=== PATIENT | male | born 1940 | race Caucasian/White ===

== ENCOUNTER 2016-06-24 06:17 | Inpatient (IN) | payer OTHER, BC ==
[2016-06-04 14:27] VITALS: BMI 31.0
--- NOTE | 2016-06-04 14:58 | PAT Medication Instructions ---
Service Date Jun 04, 2016. Current Home Medication List Aspirin (Aspirin 81), 81 MG PO QAM Atorvastatin (Lipitor), 10 MG PO QAM Multivitamin (Multivitamin), 1 TAB PO QAM Medication Instructions For Your Scheduled Surgery - Hold the following medications the morning of surgery: Multivitamin (Multivitamin), 1 TAB PO QAM - Take the following medications the morning of surgery with a sip of water OTHERWISE NOTHING TO EAT OR DRINK AFTER MIDNIGHT: Aspirin (Aspirin 81), 81 MG PO QAM Atorvastatin (Lipitor), 10 MG PO QAM If you have any questions please call us at [phone] or [phone] or [phone]
--- NOTE | 2016-06-04 15:44 | DIAGNOSTIC IMAGING REPORT ---
CHEST 2 VIEWS ROUTINE CLINICAL HISTORY: PAT preoperative evaluation COMPARISON STUDY: No previous studies for comparison. FINDINGS: The bones soft tissues and hemidiaphragms are normal. The cardiomediastinal silhouette is normal. The lungs are clear. The pulmonary vasculature is normal. IMPRESSION: Negative chest. Electronically signed by: Dennis De M.D. 06/04/2016 3:41 PM Dictated Date/Time: 06/04/2016 3:41 PM
[2016-06-04 16:23] LABS: BASO % 0.6 %; BASO ABS # 0.04 K/uL (0-0.2); COMPLETE YES; EOS % 3.6 %; HEMATOCRIT 41.2 % (42-52); IG% 0.6 %; LYMPH % 21.6 %; LYMPH ABS # 1.52 K/uL (1.2-3.4); MEAN CELL VOLUME 91.8 fL (80-100); MEAN CORPUSCULAR HEMOGLOBIN 30.7 pg (25-34); MEAN CORPUSCULAR HGB CONC 33.5 g/dl (32-36); MEAN PLATELET VOLUME 10.1 fL (7.4-10.4); MONO % 7.3 %; NEUT % 66.3 %; PLATELET COUNT 202 K/uL (130-400); RED BLOOD COUNT 4.49 M/uL (4.7-6.1); WHITE BLOOD COUNT 7.03 K/uL (4.8-10.8)
[2016-06-04 16:30] LABS: URINE APPEARANCE CLEAR (CLEAR); URINE BILIRUBIN NEG (NEG); URINE COLOR YELLOW; URINE NITRITE NEG (NEG); URINE PH 5.5 (4.5-7.5); URINE SPECIFIC GRAVITY 1.024 (1.000-1.030); UROBILINOGEN NEG (NEG); ZZUR CULT IF INDIC CLEAN CATCH NO
[2016-06-04 16:34] LABS: PARTIAL THROMBOPLASTIN RATIO 1.1; PROTHROMBIN TIME (PATIENT) 10.7 SECONDS (9.0-12.0)
[2016-06-04 16:35] LABS: BUN/CREATININE RATIO 18.5 (10-20); CALCIUM 8.8 mg/dl (8.5-10.1); CREATININE 1.3 mg/dl (0.60-1.40); POTASSIUM 3.7 mmol/L (3.5-5.1)
[2016-06-04 16:36] LABS: MANUAL MICROSCOPIC REQUIRED? NO; REVIEW REQ? NO
--- NOTE | 2016-06-21 13:41 | HISTORY & PHYSICAL EXAMINATION ---
DATE OF ADMISSION: 06/24/2016 CHIEF COMPLAINT: Left knee pain. HISTORY OF PRESENT ILLNESS: Mr. Little is a 75-year-old male with a multiple year history of left knee pain. The patient rates his pain a 10+/10. He has pain with his daily activities. He has limited standing and walking tolerance. Pain is worse with weightbearing. The patient has had home exercise program, NSAIDS without relief. He has failed conservative treatment. He is scheduled for left knee replacement. PAST MEDICAL HISTORY: Osteoarthritis. He denies heart disease, diabetes or DVT. PAST SURGICAL HISTORY: Cataract extraction, cholecystectomy and left wrist. SOCIAL HISTORY: The patient drinks 2 drinks per week. He denies tobacco use. He lives in a single story home. He lives alone, but neighbors live close by. He is retired. FAMILY HISTORY: Negative for DVT. MEDICATIONS: Lipitor 10 mg, multivitamin, aspirin 81 mg and Aleve p.r.n. ALLERGIES: None. REVIEW OF SYSTEMS: See HPI. Ten other systems reviewed, all negative. PHYSICAL EXAMINATION: VITAL SIGNS: Height 5 foot 10. Weight 200 pounds. BMI is 31. GENERAL: This is a well-developed, well-nourished male who is alert and oriented x3. Mood and affect are appropriate. HEAD, EYES, EARS, NOSE, AND THROAT: Normocephalic, atraumatic. Mucous membranes are moist and intact. NECK: Supple without lymphadenopathy. HEART: Regular rate and rhythm without murmurs, rubs or gallops. LUNGS: Clear to auscultation without wheezes or rhonchi. ABDOMEN: Soft and nontender. Bowel sounds are equal and active. EXTREMITIES: No ecchymosis, redness or warmth. He has varus deformity. Range of motion is from 3 to 115 degrees. He has +1 to 2 medial laxity. He is neurovascularly intact with +5/5 strength. X-RAY EXAMINATION: AP and lateral views show joint space narrowing and osteophyte formation. IMPRESSION: Degenerative joint disease left knee. PLAN: The patient will be admitted for a left total knee arthroplasty. We will plan on aspirin for DVT prophylaxis.
[~2016-06-24] VITALS: Ht 177.8 cm; Wt 98.2 kg
[2016-06-24] VITALS (10 sets, daily range): BP systolic 110–164; BP diastolic 64–87; PULSE 66–76; TEMP 36.4–36.7; O2SAT 93–97; Ht 177.8 cm; Wt 98.2 kg
[~2016-06-24 06:17] MED LIST: ACETAMINOPHEN 500 MG TAB PO SCH; ASPI-435 PO; ATOR10TA82 PO; CEFAZOLIN 2000 MG/60 ML D5W 60 ML IV SCH; CeleBREX 200 MG CAP PO SCH; DEXAMETHASONE 4 MG TAB PO SCH; FAMOTIDINE 20 MG TAB PO SCH; GABAPENTIN 300 MG CAP PO SCH; LACTATED RINGER'S 1000ML 1,000 ML IV SCH; LACTATED RINGER'S 1000ML 500 ML IV ONE; LACTATED RINGER'S 1000ML IV SCH; METOCLOPRAMIDE HCL 10 MG TAB PO SCH; MULT-506 PO; OXYCODONE HCL 10 MG TABCR (OXYCONTIN) PO SCH; POLYMYXIN B SULFATE 100,000 UNITS in NSS 100ML IR SCH; ROPIVACAINE 5MG/ML 30 ML 150 MG, BUPIVACAINE/EPINEPHR 0.5% MPF 30 ML, KETOROLAC TROMETH... INFIL SCH; VANCOMYCIN INJ 400 MG in NSS 100ML IR SCH
[2016-06-24] MEDS ORDERED: BUPIVACAINE 0.5 % 5 MG/1 ML PF 10ML VIAL ONE (06:40)
[2016-06-24] MEDS ORDERED: ORTHO JOINT ANESTHETIC ONE (06:49)
[2016-06-24] MEDS ORDERED: POVIDONE-IODINE OP SOLN 30 ML BTL ONE (06:50)
[2016-06-24] MEDS ORDERED: BACITRACIN 50000 UNIT VIAL ONE (06:50)
[2016-06-24] MEDS ORDERED: BUPIVACAINE/EPINEPHRINE 0.25% 1:200,000 30 ML VIAL ONE (06:50)
--- NOTE | 2016-06-24 06:51 | History & Physical Bridge Note ---
H&P Re-Evaluation Bridge Note: I have examined the patient, reviewed the History & Physical and in the interval since the performance of the History & Physical I have noted the following changes of clinical significance: No changes noted
[2016-06-24] MEDS ORDERED: FENTANYL CITRATE INJ 50 MCG/1 ML 2 ML VIAL ONE (06:56)
[2016-06-24] MEDS ORDERED: MIDAZOLAM HCL 1 MG/ML 2ML VIAL ONE (06:56)
[2016-06-24] MEDS ORDERED: FENTANYL CITRATE INJ 50 MCG/1 ML 2 ML VIAL IV PRN (07:00)
[2016-06-24] MEDS ORDERED: ATROPINE SULFATE 0.1 MG/ML 5ML SYR IV PRN (07:00)
[2016-06-24] MEDS ORDERED: ONDANSETRON INJ 2 MG/ML 2 ML VIAL IV PRN ×2 (07:00→09:45)
[2016-06-24] MEDS ORDERED: EpHEDrine SULFATE INJ 50 MG/ML AMP IV PRN (07:00)
[2016-06-24] MEDS: TRANEXAMIC ACID INJ 1,000 MG in SODIUM CHLORIDE 0.9% 100ML 100 ML IV SCH (07:58)
[2016-06-24] MEDS ORDERED: PROPOFOL IV EMULSION 10 MG/ML 20 ML VIAL IV ONE (09:00)
[2016-06-24] MEDS ORDERED: PHENYLEPHRINE 100MCG/ML 5ML SYR ONE ×2 (09:00→10:22)
[2016-06-24] MEDS ORDERED: LIDOCAINE HCL 2% 2 ML VIAL (20MG/ML) ONE (09:00)
--- NOTE | 2016-06-24 09:41 | [facility] Post Operative Brief Note ---
Immediate Operative Summary Operative Date June 24, 2016. Pre-Operative Diagnosis Degenerative joint disease left knee Post-Operative Diagnosis Degenerative joint disease left knee Procedure(s) Performed Left Total Knee Arthroplasty, Cemented Surgeon Dr. Joss Redd Paper Sales Representative Surgeon(s) Arik Venegas PA-C Estimated Blood Loss 75ml Findings DJD Specimens A: Left knee bone and tissue Complication(s) None Disposition Recovery Room / PACU
[2016-06-24] MEDS ORDERED: SOD PHOSPHATE/SOD BIPHOSPHATE ENEMA 132 ML BTL PR PRN (09:45)
[2016-06-24] MEDS ORDERED: OXYCODONE HCL IR 5 MG TAB (IMMEDIATE RELEASE) PO PRN (09:45)
[2016-06-24] MEDS ORDERED: ALUMINUM/MAGNESIUM/SIMETH (MAALOX MAX) 30 ML UDC PO PRN (09:45)
[2016-06-24] MEDS ORDERED: DiphenhydrAMINE HCL 50 MG/ML VIAL IV PRN (09:45)
[2016-06-24] MEDS ORDERED: TRAMADOL HCL 50 MG TAB PO PRN (09:45)
[2016-06-24] MEDS ORDERED: MAGNESIUM HYDROXIDE SUSP 30 ML UDC PO PRN (09:45)
[2016-06-24] MEDS ORDERED: ZOLPIDEM TARTRATE 5 MG TAB PO PRN (09:45)
[2016-06-24] MEDS ORDERED: BISACODYL 10 MG SUPP PR PRN (09:45)
[2016-06-24] MEDS ORDERED: MoRPHine SULFATE 2 MG/ML CARP IV PRN (09:45)
[2016-06-24] MEDS ORDERED: KETOROLAC TROMETHAMINE 15 MG/ML VIAL IV. PRN (09:45)
[2016-06-24] MEDS ORDERED: METOCLOPRAMIDE HCL INJ 5 MG/ML 2 ML VIAL IV PRN (09:45)
--- NOTE | 2016-06-24 10:54 | DIAGNOSTIC IMAGING REPORT ---
LEFT KNEE 1 OR 2 VIEWS ROUTINE CLINICAL HISTORY: AP/LATERAL IN PACU LEFT KNEE COMPARISON: None. DISCUSSION: Evidence for a total knee arthroplasty. Surgical drains are in position. There is no evidence for soft tissue swelling. IMPRESSION: Total left knee arthroplasty Electronically signed by: Dennis De M.D. 06/24/2016 10:53 AM Dictated Date/Time: 06/24/2016 10:53 AM
--- NOTE | 2016-06-24 11:49 | Anesthesiology Progress Note ---
Anesthesia Post Op Note Date & Time June 24, 2016 at 11:49 Vital Signs Pain Intensity: 0 Vital Signs Past 12 Hours Date Time Temp Pulse Resp B/P Pulse Ox O2 Delivery O2 Flow Rate FiO2 06/24/16 11:30 36.1 74 17 129/77 96 Nasal Cannula 3 06/24/16 11:25 78 22 115/70 97 Nasal Cannula 3 06/24/16 11:15 74 14 126/77 96 Nasal Cannula 3 06/24/16 11:05 76 20 119/70 96 Nasal Cannula 3 06/24/16 10:55 79 20 121/73 99 Nasal Cannula 3 06/24/16 10:45 77 16 122/74 99 Nasal Cannula 3 06/24/16 10:35 76 16 108/55 99 Nasal Cannula 3 06/24/16 10:25 74 16 116/71 99 Nasal Cannula 3 06/24/16 10:17 36.8 79 16 85/44 99 Nasal Cannula 3 06/24/16 06:49 36.7 72 20 164/87 97 Room Air Notes Mental Status: alert / awake / arousable, participated in evaluation Pt Amnestic to Procedure: Yes Nausea / Vomiting: adequately controlled Pain: adequately controlled Airway Patency, RR, SpO2: stable & adequate BP & HR: stable & adequate Hydration State: stable & adequate Neuraxial Anesthesia: was administered, sensory block is resolving Anesthetic Complications: no major complications apparent
[2016-06-24] MEDS: D5W AND 1/2NSS + 20MEQ KCL 1,000 ML IV SCH ×2 (12:49→22:26)
[2016-06-24] MEDS: ACETAMINOPHEN 500 MG TAB PO SCH ×2 (13:46→22:26)
[2016-06-24] MEDS: CEFAZOLIN IV 2,000 MG in DEXTROSE 5% 50ML 50 ML IV SCH ×2 (15:57→23:30)
[2016-06-24] MEDS ORDERED: TRANEXAMIC ACID INJ 1,000 MG in SODIUM CHLORIDE 0.9% 100ML 100 ML IV SCH (16:00)
--- NOTE | 2016-06-24 16:16 | OPERATIVE REPORT ---
DATE OF OPERATION: 06/24/2016 PREOPERATIVE DIAGNOSIS: Degenerative arthritis, left knee. POSTOPERATIVE DIAGNOSIS: Same. PROCEDURE: Left total knee with patient matched implant. SURGEON: Dr. Redd. IT SOFTWARE DEVELOPER: CHRISTY Irwin. ANESTHESIA: Spinal. BLOOD LOSS: 75 mL. REPLACEMENT FLUIDS: 1500 mL crystalloid. DRAINS: Hemovac x2. CULTURES: None. COMPLICATIONS: None. COMPONENTS USED: [employer] Journey Knee System, femur size 7, tibia size 7 x 12, and patella size 41. NOTE: CHRISTY Irwin was present and assisted throughout due to the complicated nature of this case. He helped with preparation and set up, first assisted throughout and personally closed the capsule, subcutaneous and skin layers and applied the postoperative dressing. DESCRIPTION OF PROCEDURE: Following satisfactory spinal, the patient was supine. A tourniquet was placed, but not inflated. The lower extremity was prepared with ChloraPrep and draped sterilely. Following a surgical time-out, a midline incision was made with a trivector approach. The knee showed grade 4 changes, severe in the medial and patellofemoral compartments. The cruciate ligaments were excised. The patella was freehand cut. The patient matched femoral block was applied. Femoral distal rotation and resection were set and completed. The 4-in-1 block was used to finish preparation of the femur. The patient matched tibial block was applied. Tibial resection was completed. Soft tissue balancing was completed and a trial reduction showed good tensioning and stability on the collateral ligaments, stable range of motion, and the patella tracked well. The trial components were removed. The capsule was prepared with the orthopedic cocktail. After irrigation, the components were cemented using Simplex G cement. Betadine soak was performed. When the cement had hardened, the Betadine was irrigated. Two drains were placed. The arthrotomy was closed with a running suture of 0 V-Loc, the subcutaneous tissues with 2-0 Vicryl and the skin with a running subcuticular stitch of 3-0 V-Loc. Dermabond and a dry dressing were applied. The patient was returned to his bed in good condition. I attest to the content of the Intraoperative Record and any orders documented therein. Any exceptio ns are noted below.
[2016-06-24] MEDS: OXYCODONE HCL 10 MG TABCR (OXYCONTIN) PO SCH (20:29)
[2016-06-24] MEDS: ASPIRIN 81 MG ECTAB PO SCH (20:29)
[2016-06-24] MEDS ORDERED: SENNA 8.6 MG TAB PO SCH (21:00)
[2016-06-25 02:51] VITALS: BP 120/67; PULSE 74; TEMP 36.4; O2SAT 95
[2016-06-25] MEDS: ACETAMINOPHEN 500 MG TAB PO SCH ×2 (05:54→14:02)
[2016-06-25 06:10] LABS: HEMATOCRIT 35.9 % (42-52); MEAN CORPUSCULAR HEMOGLOBIN 31.6 pg (25-34); MEAN PLATELET VOLUME 10.2 fL (7.4-10.4); PLATELET COUNT 178 K/uL (130-400); RED BLOOD COUNT 3.86 M/uL (4.7-6.1); WHITE BLOOD COUNT 16.92 K/uL (4.8-10.8)
[2016-06-25 06:49] LABS: BUN/CREATININE RATIO 18.1 (10-20); CALCIUM 8.2 mg/dl (8.5-10.1); CREATININE 1.2 mg/dl (0.60-1.40); POTASSIUM 4.2 mmol/L (3.5-5.1)
[2016-06-25] MEDS ORDERED: BUPIVACAINE/EPINEPHRINE 0.25% 1:200,000 30 ML VIAL ONE (07:06)
[2016-06-25] MEDS ORDERED: BACITRACIN 50000 UNIT VIAL ONE (07:07)
[2016-06-25] MEDS ORDERED: POVIDONE-IODINE OP SOLN 30 ML BTL ONE (07:07)
[2016-06-25 07:08] VITALS: BP 122/68; PULSE 75; TEMP 36.7; O2SAT 97
[2016-06-25] MEDS: OXYCODONE HCL 10 MG TABCR (OXYCONTIN) PO SCH (08:37)
[2016-06-25] MEDS: ASPIRIN 81 MG ECTAB PO SCH (08:37)
[2016-06-25] MEDS: D5W AND 1/2NSS + 20MEQ KCL 1,000 ML IV SCH (08:47)
[2016-06-25] MEDS ORDERED: PANTOprazole SOD 40 MG TAB PO SCH (09:00)
[2016-06-25] MEDS ORDERED: MULTIVITAMIN TAB PO SCH (09:00)
[2016-06-25] MEDS ORDERED: ATORVASTATIN 10 MG TAB PO SCH (09:00)
--- NOTE | 2016-06-25 09:36 | Anesthesiology Progress Note ---
Anesthesia Post Op Note Date & Time June 25, 2016 at 09:35 Vital Signs Pain Intensity: 4.0 Vital Signs Past 12 Hours Date Time Temp Pulse Resp B/P Pulse Ox O2 Delivery O2 Flow Rate FiO2 06/25/16 07:15 Room Air 06/25/16 07:08 36.7 75 16 122/68 97 Room Air 06/25/16 02:51 36.4 74 17 120/67 95 Room Air 06/24/16 23:30 Room Air 06/24/16 22:46 36.4 66 16 110/64 93 Room Air Notes Mental Status: alert / awake / arousable, participated in evaluation Pt Amnestic to Procedure: Yes Nausea / Vomiting: adequately controlled Pain: adequately controlled Airway Patency, RR, SpO2: stable & adequate BP & HR: stable & adequate Hydration State: stable & adequate Neuraxial Anesthesia: sensory block resolved Anesthetic Complications: no major complications apparent
--- NOTE | 2016-06-25 10:01 | Orthopedic Progress Note ---
Orthopedic Progress Note Date of Service June 25, 2016. Subjective Post OP Day: 1 Reports: feeling well, Denies: SOB, calf pain, chest pain, light headedness, nausea / vomiting Objective calves soft nontender, N/V intact, dressing C/D/I, A&O x3, toes mobile, hemovac drainage (445/380cc per shift) Date Time Temp Pulse Resp B/P Pulse Ox O2 Delivery O2 Flow Rate FiO2 06/25/16 07:15 Room Air 06/25/16 07:08 36.7 75 16 122/68 97 Room Air 06/25/16 02:51 36.4 74 17 120/67 95 Room Air 06/24/16 23:30 Room Air 06/24/16 22:46 36.4 66 16 110/64 93 Room Air 06/24/16 19:24 36.5 76 18 121/65 94 Room Air 06/24/16 16:30 94 Room Air 06/24/16 15:47 Room Air 06/24/16 14:46 36.7 73 17 121/69 97 Nasal Cannula 2.0 06/24/16 13:57 36.5 71 17 120/65 96 Nasal Cannula 2.0 06/24/16 13:46 36.5 73 16 119/72 97 Nasal Cannula 2.0 06/24/16 12:45 36.5 74 16 120/74 97 Nasal Cannula 2.0 06/24/16 12:11 70 18 127/77 97 Nasal Cannula 2.0 06/24/16 11:45 97 Nasal Cannula 2.0 06/24/16 11:45 36.7 75 16 129/80 97 Nasal Cannula 2.0 06/24/16 11:45 97 Nasal Cannula 2.0 06/24/16 11:30 36.1 74 17 129/77 96 Nasal Cannula 3 06/24/16 11:25 78 22 115/70 97 Nasal Cannula 3 06/24/16 11:15 74 14 126/77 96 Nasal Cannula 3 06/24/16 11:05 76 20 119/70 96 Nasal Cannula 3 06/24/16 10:55 79 20 121/73 99 Nasal Cannula 3 06/24/16 10:45 77 16 122/74 99 Nasal Cannula 3 06/24/16 10:35 76 16 108/55 99 Nasal Cannula 3 06/24/16 10:25 74 16 116/71 99 Nasal Cannula 3 06/24/16 10:17 36.8 79 16 85/44 99 Nasal Cannula 3 Laboratory Results 24 Hours: Test 06/25/16 05:25 Hematocrit 35.9 % Hemoglobin 12.2 g/dL Assessment & Plan Assessment: POD#1 sp left TKA Inhouse Planning Pain Management: Celebrex, Oxycontin, PO Tylenol, Oxy IR DVT Prophylaxis: TEDs, SCDs, ASA Discharge Planning Discharge Planning: home with home health ([facility] TODAY WITH ADVANTAGE. )
--- NOTE | 2016-06-25 10:02 | Discharge Instructions ---
Discharge Instructions Date of Service June 25, 2016. Admission Reason for Admission: Left Knee Degenerative Arthritis Discharge Discharge Diagnosis / Problem: SP LEFT TKA Discharge Goals Goal(s): Decrease discomfort, Improve function, Increase independence Activity Recommendations Activity Limitations: per Instructions/Follow-up section . Instructions / Follow-Up Instructions / Follow-Up ACTIVITY RECOMMENDATIONS: SELF CARE INSTRUCTIONS AFTER TOTAL KNEE REPLACEMENT A. You may need to continue a physical therapy program after discharge from the hospital. There are several options available to you. Your doctor will assist you in selecting the best one for you. 1. An out-patient facility 2 to 3 times a week for therapy or home therapy. 2. Continue working on all exercises taught to you in the hospital. Your goals should be to increase bending of your knee to 90 degrees and beyond and to fully straighten your knee. B. You may progress at your own pace from walking with a walker or crutches to a cane; then to no assistive devices. C. Make walking a part of your daily routine. Be up as much as comfortable with rest periods throughout the day. Rest with leg elevation is very important. Use the ice wrap frequently for the first 3-4 weeks. D. There are no restrictions on activities. You may ride in a car, shop, participate in manager hair and all social activities. E. Wear the long elastic stockings (CHATO hose) 20 hours a day for 2 weeks after surgery. They can be removed several times a day for laundering and for a bath. F. You may shower, no tub baths until cleared by your doctor. SPECIAL CARE INSTRUCTIONS: VERY IMPORTANT TO READ AND REVIEW A. There are a few signs you need to watch for after you are home. Call [facility] if you notice any of the followin. Increased severe knee pain. Some pain is expected especially when you exercise. 2. Increased swelling in your leg or knee; pain or swelling of the calf muscle in either lower leg. 3. Any fluid drainage from the incision. 4. Shortness of breath or chest pain. B. Please call [facility] at if you have any concerns or questions about your operation or recovery. The doctor or his nurse will return your call promptly. C. You must take antibiotics before dental work, bladder, bowel or other surgery. Your doctor will provide you with a permanent care to carry describing this precaution. IMPORTANT: * REMEMBER TO TAKE ASPIRIN, 81 MG, TWICE DAILY FOR 4 WEEKS UNLESS OTHERWISE DIRECTED. THIS IS YOUR BLOOD THINNER. * HIGH RISK PATIENTS MAY BE PRESCRIBED A STRONGER BLOOD THINNER. THIS WILL BE PROVIDED AT DISCHARGE. * CALL IF INCREASED PAIN, REDNESS, DRAINAGE OR FEVER GREATER THAT 101. * WEAR CHATO HOSE 20 HOURS PER DAY FOR 2 WEEKS. DERMABOND Prineo- This is a mesh tape dressing that is covered with glue. It should remain in place until the incision is properly healed, usually 10-14 days. This dressing is designed to naturally slough off. You may trim the excess mesh tape as it peels off. Incision may be briefly wet in a shower. Dry immediately by blotting with a clean, dry towel. Do not bath or swim until instructed by your doctor. Do not scratch, rub, or pick at the dressing. Do not apply any topical ointments or lotions until dressing is completely removed and/or instructed by your doctor. There may be a small piece of suture material at one end of your incision. Do not pull or trim this. If it is bothersome or catching on clothing, you may cover it with a band-aid. FOLLOW UP VISIT: If appointment is not already scheduled: Please call [facility] to make a follow-up appointment for 2 weeks after your surgery at . Current Hospital Diet Patient's current hospital diet: Regular Diet Discharge Diet Recommended Diet: Regular Diet Procedures Procedures Performed: Left Total Knee Arthroplasty, Cemented Pending Studies Studies pending at discharge: no Medical Emergencies . Who to Call and When: Medical Emergencies: If at any time you feel your situation is an emergency, please call 911 immediately. . Non-Emergent Contact Non-Emergency issues call your: Surgeon . "Provider Documentation" section prepared by Anastacia Moran. . VTE Core Measure Inpt VTE Proph given/why not?: [place], SCD's [place] Drug Monitoring Program Search Results: patient reviewed within database, no issues identified
[2016-06-25 11:26] VITALS: BP 123/74; PULSE 78; TEMP 36.6; O2SAT 95
[2016-06-25] MEDS ORDERED: SNK PO (13:10)
[2016-06-25] MEDS ORDERED: ASPI-435 PO (13:10)
[2016-06-25] MEDS ORDERED: ACET-1138 PO (13:10)
[2016-06-25] MEDS ORDERED: ONDA8TAB6 PO (13:10)
[2016-06-25] MEDS ORDERED: MORP-157 PO (13:10)
[2016-06-25] MEDS ORDERED: RXC5 PO (13:10)
[2016-06-25] MEDS ORDERED: CLB200 PO (13:10)
[2016-06-25 13:36] VITALS: BP 123/74; PULSE 78; TEMP 36.6; O2SAT 95
[2016-06-27] MEDS ORDERED: CeleBREX 200 MG CAP PO SCH (08:00)
--- NOTE | 2016-07-01 08:08 | Discharge Summary ---
Orthopedic Discharge Summary Admission Date/Reason June 24, 2016 at 06:45 Left Knee Degenerative Arthritis. Discharge Date/Disposition June 25, 2016 Home with services Diagnosis Principal Diagnosis: Left Knee Djd Procedure(s) Performed Left TKA Medication Reconciliation New Medications: Morphine Sulfate (Ms Contin) 15 Mg Tab 15 MG PO Q12, #20 TAB Ondansetron Hcl (Zofran) 8 Mg Tab 8 MG PO Q8 PRN for Nausea, #20 TAB Acetaminophen (Tylenol Extra Strength) 500 Mg Tab 1000 MG PO Q8H for 30 Days, #180 TAB Celecoxib (Celebrex) 200 Mg Cap 200 MG PO QD@08 for 30 Days, #30 CAP Oxycodone HCl (Oxycodone HCl) 5 Mg Tab 5-10 MG PO Q4H PRN for Pain, #60 TAB Senna (Senna Lax) 8.6 Mg Tab 17.2 MG PO HS for 14 Days, TAB Changed Medications: Aspirin (Aspirin 81) 81 Mg Tab 81 MG PO BID for 30 Days, #60 TAB (Changed from: QAM) Continued Medications: Atorvastatin (Lipitor) 10 Mg Tab 10 MG PO QAM Multivitamin (Multivitamin) Tab 1 TAB PO QAM Admission Physical Exam As per Admitting History & Physical. Hospital Course The Patient had an uneventful hospital course. Labs remained stable- lowest hemoglobin recorded: 12.2 . Pain controlled on oral medications. Participated in PT with ambulation distance of 650 feet. ROM of operative knee reached 112 degrees. Drainage output totaled 1075 cc prior to discontinuation. Patient did not have a reported bowel movement. Incision remained clean/dry/intact. DVT prophylaxis with Aspirin EC 81mg BID x 30 days/Damien stockings. Patient discharged home with Home Health Services in stable condition. Please refer to daily progress notes for further details. Discharge Instructions Please refer to the electronic Patient Visit Report (Discharge Instructions) for additional information.
== END 2016-06-25 14:30 | disposition home health service (06) | DRG 470 ==
LOC: ENRESERVDT → ENRESERVTM → C.ACU 06:17 → C.3E 06:45
PROVIDERS: ADMIT Orthopaedic Surgery; ATTEND Orthopaedic Surgery
PROC: 0SRD0J9 Replacement of Left Knee Joint with Synthetic Substitute, Cemented, Open Approach (ICD-10-PCS; principal; 2016-06-24 08:15)
DX: M17.12 Unilateral primary osteoarthritis, left knee (principal); I38 Endocarditis, valve unspecified; E66.9 Obesity, unspecified; M54.6 Pain in thoracic spine; Z68.31 Body mass index [BMI] 31.0-31.9, adult; Z79.82 Long term (current) use of aspirin; Z79.1 Long term (current) use of non-steroidal anti-inflammatories (NSAID); Z79.899 Other long term (current) drug therapy

== ENCOUNTER → 2016-07-04 | Outpatient (CLI) | payer OTHER, BC ==
[~2016-07-04] MED LIST changes: +ACET-1138 PO; -ACETAMINOPHEN 500 MG TAB PO SCH; -CEFAZOLIN 2000 MG/60 ML D5W 60 ML IV SCH; +CLB200 PO; -CeleBREX 200 MG CAP PO SCH; -DEXAMETHASONE 4 MG TAB PO SCH; -FAMOTIDINE 20 MG TAB PO SCH; -GABAPENTIN 300 MG CAP PO SCH; -LACTATED RINGER'S 1000ML 1,000 ML IV SCH; -LACTATED RINGER'S 1000ML 500 ML IV ONE; -LACTATED RINGER'S 1000ML IV SCH; -METOCLOPRAMIDE HCL 10 MG TAB PO SCH; +MORP-157 PO; +ONDA8TAB6 PO; -OXYCODONE HCL 10 MG TABCR (OXYCONTIN) PO SCH; -POLYMYXIN B SULFATE 100,000 UNITS in NSS 100ML IR SCH; -ROPIVACAINE 5MG/ML 30 ML 150 MG, BUPIVACAINE/EPINEPHR 0.5% MPF 30 ML, KETOROLAC TROMETH... INFIL SCH; +RXC5 PO; +SNK PO; -VANCOMYCIN INJ 400 MG in NSS 100ML IR SCH
--- NOTE | 2016-07-04 15:55 | DIAGNOSTIC IMAGING REPORT ---
LEFT LOWER EXTREMITY VENOUS DOPPLER HISTORY: Left KNEE SWELLING, R/O DVT COMPARISON STUDY: None. FINDINGS: There is normal compressibility, flow, and augmentation within the left lower extremity deep venous system. IMPRESSION: No DVT within the left lower extremity. Electronically signed by: Ángel Garcia M.D. 07/04/2016 3:54 PM Dictated Date/Time: 07/04/2016 3:54 PM
--- NOTE | 2016-07-09 11:44 | CODING QUERY MEDICAL NECESSITY ---
CQSUPPORTING DIAGNOSIS NEEDED A supporting diagnosis is required for the test/procedure performed on this patient in order for us to be reimbursed by the patient's insurance. Please provide a supporting diagnosis for the following test/procedure listed below next to the test name along with your signature. *If there is no additional diagnosis for this patient that would support the following test/procedure please document that below next to the test/procedure. Test(s)/Procedure(s) that require a supporting diagnosis: DOS 07/04/16 NON-INVASIVE PERIPHERAL VENOUS STUDY Provider Signature: Date: Thank you Wilda Veliz Health Information Management Once completed, please kindly fax back to [phone] For questions please call [phone]
== END | disposition home or self-care (01) ==
LOC: C.ULTR 15:27
PROVIDERS: ATTEND Orthopaedic Surgery
DX: Z47.1 Aftercare following joint replacement surgery (principal); M25.462 Effusion, left knee; M79.605 Pain in left leg

== ENCOUNTER → 2016-12-03 | Outpatient (CLI) | payer OTHER, BC ==
[~2016-12-03] MED LIST changes: -ATOR10TA82 PO; +ATOR10TA88 PO; -MORP-157 PO
[2016-12-03 12:15] LABS: HEMATOCRIT 44.9 % (42-52); MEAN CELL VOLUME 90.7 fL (80-100); MEAN CORPUSCULAR HEMOGLOBIN 30.5 pg (25-34); MEAN CORPUSCULAR HGB CONC 33.6 g/dl (32-36); MEAN PLATELET VOLUME 10.6 fL (7.4-10.4); PLATELET COUNT 220 K/uL (130-400); RED BLOOD COUNT 4.95 M/uL (4.7-6.1); WHITE BLOOD COUNT 7.16 K/uL (4.8-10.8)
[2016-12-03 12:37] LABS: ESTIMATED AVERAGE GLUCOSE 137 mg/dl; HA1C FLAG Normal (Normal)
[2016-12-03 13:09] LABS: ALT/SGPT 22 U/L (12-78); AST/SGOT 17 U/L (15-37); BLOOD UREA NITROGEN 15 mg/dl (7-18); BUN/CREATININE RATIO 13.6 (10-20); CALCIUM 9.1 mg/dl (8.5-10.1); CARBON DIOXIDE 28 mmol/L (21-32); CHLORIDE 106 mmol/L (98-107); CHOLESTEROL 133 mg/dl (0-200); GLUCOSE,FASTING 99 mg/dl (70-99); MAGNESIUM 2.2 mg/dl (1.8-2.4); SODIUM 139 mmol/L (136-145); TRIGLYCERIDES 121 mg/dl (0-150); VERY LOW DENSITY LIPOPROT CALC 24 mg/dl
[2016-12-03 13:16] LABS: ALKALINE PHOSPHATASE 73 U/L (45-117); CHOLESTEROL/HDL RATIO 2.9; HDL CHOLESTEROL 46 mg/dl
== END | disposition home or self-care (01) ==
LOC: C.LABPBG 07:32
PROVIDERS: ATTEND Internal Medicine Cardiovascular Disease
DX: E78.5 Hyperlipidemia, unspecified (principal)

== ENCOUNTER → 2017-06-16 | Outpatient (CLI) | payer OTHER, BC ==
[~2017-06-16] MED LIST changes: +ATOR10TA82 PO; -ATOR10TA88 PO; -ONDA8TAB6 PO
[2017-06-16 13:35] LABS: HEMATOCRIT 46.6 % (42-52); HEMOGLOBIN 15.7 g/dL (14.0-18.0); MEAN CELL VOLUME 94.7 fL (80-100); MEAN CORPUSCULAR HEMOGLOBIN 31.9 pg (25-34); MEAN CORPUSCULAR HGB CONC 33.7 g/dl (32-36); MEAN PLATELET VOLUME 10.3 fL (7.4-10.4); PLATELET COUNT 207 K/uL (130-400); RED CELL DISTRIBUTION WIDTH CV 13.6 % (11.5-14.5); RED CELL DISTRIBUTION WIDTH SD 46.7 fL (36.4-46.3)
[2017-06-16 14:02] LABS: ALBUMIN 3.8 gm/dl (3.4-5.0); ALT/SGPT 28 U/L (12-78); AST/SGOT 23 U/L (15-37); BLOOD UREA NITROGEN 15 mg/dl (7-18); CALCIUM 8.6 mg/dl (8.5-10.1); CARBON DIOXIDE 32 mmol/L (21-32); CHOLESTEROL 123 mg/dl (0-200); CREATININE 1.22 mg/dl (0.60-1.40); GLUCOSE,FASTING 112 mg/dl (70-99); POTASSIUM 4.3 mmol/L (3.5-5.1); SODIUM 139 mmol/L (136-145)
[2017-06-16 14:13] LABS: ALKALINE PHOSPHATASE 71 U/L (45-117); LDL CHOLESTEROL (DIRECT) 69 mg/dl; TOTAL PROTEIN 7.4 gm/dl (6.4-8.2)
== END | disposition home or self-care (01) ==
LOC: C.LABPBG 07:33
PROVIDERS: ATTEND Family Medicine
DX: Z51.81 Encounter for therapeutic drug level monitoring (principal); Z79.899 Other long term (current) drug therapy; E78.5 Hyperlipidemia, unspecified; E66.9 Obesity, unspecified